=== PATIENT | male | born 1995 | race Caucasian/White ===

== ENCOUNTER 2019-01-25 22:06 | Emergency (ER) | payer BC ==
[2019-01-25 22:15] VITALS: TEMP 98.3
[2019-01-25] MEDS ORDERED: ONDANSETRON 4 MG/2 ML VIAL IVP STA (22:23)
[2019-01-25] MEDS ORDERED: PANTOPRAZOLE 40 MG/10 ML VIAL IVP STA (22:23)
[2019-01-25] MEDS ORDERED: SODIUM CHLORIDE 0.9% 1,000 ML IV STA (22:23)
--- NOTE | 2019-01-25 22:37 | XR ---
EXAMINATION TYPE: XR KUB DATE OF EXAM: 01/25/2019 COMPARISON: NONE HISTORY: Nausea and vomiting TECHNIQUE: 2 views FINDINGS: 2 views upright were obtained and show no sign of intestinal obstruction or pneumoperitoneu m. Fecal pattern is normal. Lung bases are clear. There are no pathologic calcifications over the kid neys. IMPRESSION: Nonacute abdomen.
[2019-01-25 22:39] LABS: Appearance,Urine Clear (Clear); Basophils # (A) 0.1 k/uL (0-0.2); Basophils % (A) 1 %; Bilirubin,Urine Negative (Negative); Blood,Urine Negative (Negative); Color,Urine Light Yellow; Eosinophils # (A) 0.3 k/uL (0-0.7); Eosinophils % (A) 3 %; Glucose,Urine (UA) Negative (Negative); HCT 44.2 % (39.0-53.0); HGB 15.2 gm/dL (13.0-17.5); Ketones,Urine 2+ (Negative); Leukocyte Esterase,Urine Negative (Negative); Lymphocytes # (A) 1.7 k/uL (1.0-4.8); Lymphocytes % (A) 18 %; MCH 31.1 pg (25.0-35.0); MCHC 34.4 g/dL (31.0-37.0); MCV 90.3 fL (80.0-100.0); Mean Platelet Volume 5.8; Monocytes # (A) 0.6 k/uL (0-1.0); Monocytes % (A) 6 %; Neutrophils # (A) 6.5 k/uL (1.3-7.7); Neutrophils % (A) 71 %; Nitrite,Urine Negative (Negative); PH, Urine 8.5 (5.0-8.0); Platelet Count 277 k/uL (150-450); Protein,Urine Negative (Negative); RDW 13.1 % (11.5-15.5); Specific Gravity,Urine 1.009 (1.001-1.035); Urobilinogen,Urine <2.0 mg/dL (<2.0); WBC 9.1 k/uL (3.8-10.6)
--- NOTE | 2019-01-25 22:43 | ED ---
Nausea/Vomiting/Diarrhea HPI - General Chief complaint: Nausea/Vomiting/Diarrhea Stated complaint: Vomiting Time Seen by Provider: 01/25/19 22:16 Source: patient, family Mode of arrival: ambulatory Limitations: no limitations - History of Present Illness Initial comments: 23-year-old male patient since to the emergency department today for evaluation of vomiting upper abdominal pain. Patient states this started last evening. States he has had streaking blood in his vomit. Denies any constipation or diarrhea. States he did have a bowel movement today which was normal. States he was eating earlier in the day but then vomiting became worse again. Denies any fever or chills. Denies any alcohol use. Does admit to IV drug use. Denies history of abdominal surgery. Patient denies any recent rash, shortness breath, chest pain, back pain, numbness, tingling, dizziness, weakness, hematuria, dysuria, urinary urgency, urinary frequency, headache, visual changes, or any other complaints. - Related Data Allergies Allergy/AdvReac Type Severity Reaction Status Date / Time No Known Allergies Allergy Verified 01/25/19 22:15 Review of Systems ROS Statement: Those systems with pertinent positive or pertinent negative responses have been documented in the HPI. ROS Other: All systems not noted in ROS Statement are negative. Past Medical History Past Medical History: No Reported History History of Any Multi-Drug Resistant Organisms: None Reported Past Surgical History: No Surgical Hx Reported Past Psychological History: No Psychological Hx Reported Smoking Status: Current every day smoker Past Alcohol Use History: Occasional Past Drug Use History: Heroin, Marijuana General Exam Limitations: no limitations General appearance: alert, in no apparent distress, other (This is a well- developed, well-nourished adult male patient in no acute distress. Vital signs upon presentation are temperature 98.3F, pulse 94, respirations 18, blood pressure 171/94, pulse ox 99% on room air.) Eye exam: Present: normal appearance, PERRL, EOMI. Absent: scleral icterus, conjunctival injection, periorbital swelling ENT exam: Present: normal exam, normal oropharynx, mucous membranes moist Respiratory exam: Present: normal lung sounds bilaterally. Absent: respiratory distress, wheezes, rales, rhonchi, stridor Cardiovascular Exam: Present: regular rate, normal rhythm, normal heart sounds. Absent: systolic murmur, diastolic murmur, rubs, gallop, clicks GI/Abdominal exam: Present: soft, tenderness (midepigastric tenderness), normal bowel sounds. Absent: distended, guarding, rebound, rigid Neurological exam: Present: alert, oriented X3, CN II-XII intact Psychiatric exam: Present: normal affect, normal mood Skin exam: Present: warm, dry, intact, normal color. Absent: rash Course Vital Signs 01/25/19 22:09 Temperature 98.3 F Pulse Rate 94 Respiratory 18 Rate Blood Pressure 171/94 O2 Sat by Pulse 99 Oximetry Medical Decision Making - Medical Decision Making 23-year-old male patient presents to the emergency department today for evaluation of upper abdominal pain, nausea, and vomiting. Physical examination did reveal tenderness to the midepigastric region. Remainder of abdomen was nontender. He is afebrile. Labs reviewed and did reveal mildly elevated lipase at 524. Patient was given IV fluids, zofran, and protonix. Upon re-evaluation he is does report improvement of symptoms. He is resting comfortably. He was informed of all results. He will be discharged to maintain clear liquid diet for the next 1-2 days. He will be given prescription for zofran. He is instructed to follow up with his primary care physician for recheck in 1-2 days. Return parameters are discussed in detail he verbalizes understanding and agrees with this plan. - Lab Data Result diagrams: 01/25/19 22:28 01/25/19 22:28 Lab Results 01/25/19 01/25/19 01/25/19 Range/Units 22:28 22:28 22:28 WBC 9.1 (3.8-10.6) k/uL RBC 4.90 (4.30-5.90) m/uL Hgb 15.2 (13.0-17.5) gm/dL Hct 44.2 (39.0-53.0) % MCV 90.3 (80.0-100.0) fL MCH 31.1 (25.0-35.0) pg MCHC 34.4 (31.0-37.0) g/dL RDW 13.1 (11.5-15.5) % Plt Count 277 (150-450) k/uL Neutrophils % 71 % Lymphocytes % 18 % Monocytes % 6 % Eosinophils % 3 % Basophils % 1 % Neutrophils # 6.5 (1.3-7.7) k/uL Lymphocytes # 1.7 (1.0-4.8) k/uL Monocytes # 0.6 (0-1.0) k/uL Eosinophils # 0.3 (0-0.7) k/uL Basophils # 0.1 (0-0.2) k/uL Sodium 139 (137-145) mmol/L Potassium 3.8 (3.5-5.1) mmol/L Chloride 102 (98-107) mmol/L Carbon Dioxide 26 (22-30) mmol/L Anion Gap 11 mmol/L BUN 10 (9-20) mg/dL Creatinine 1.01 (0.66-1.25) mg/dL Est GFR (CKD-EPI)AfAm >90 (>60 ml/min/1.73 sqM) Est GFR (CKD-EPI)NonAf >90 (>60 ml/min/1.73 sqM) Glucose 107 H (74-99) mg/dL Calcium 10.4 H (8.4-10.2) mg/dL Total Bilirubin 0.6 (0.2-1.3) mg/dL AST 32 (17-59) U/L ALT 31 (21-72) U/L Alkaline Phosphatase 64 (38-126) U/L Total Protein 7.2 (6.3-8.2) g/dL Albumin 4.4 (3.5-5.0) g/dL Lipase 524 H (23-300) U/L Urine Color Light Yellow Urine Appearance Clear (Clear) Urine pH 8.5 H (5.0-8.0) Ur Specific [place] 1.009 (1.001-1.035) Urine Protein Negative (Negative) Urine Glucose (UA) Negative (Negative) Urine Ketones 2+ H (Negative) Urine Blood Negative (Negative) Urine Nitrite Negative (Negative) Urine Bilirubin Negative (Negative) Urine Urobilinogen <2.0 (<2.0) mg/dL Ur Leukocyte Esterase Negative (Negative) Disposition Clinical Impression: Abdominal pain, Vomiting Disposition: HOME SELF-CARE Condition: Good Instructions (If sedation given, give patient instructions): Abdominal Pain (ED), Acute Nausea and Vomiting (ED), Pancreatitis (ED) Additional Instructions: Increase fluids. Maintain clear liquid diet for the next 1-2 days. Take nausea medication as directed. Follow-up with your primary care physician for recheck in 1-2 days, discuss ultrasound of symptoms persist. Return to the emergency department for any new, worsening, or concerning symptoms. Is patient prescribed a controlled substance at d/c from ED?: No Referrals: Tomas Camacho MD [REFERRING] - 1-2 days Time of Disposition: 23:33
[2019-01-25 22:47] LABS: ALT 31 U/L (21-72); AST 32 U/L (17-59); African American GFR (CKD) >90 (>60 ml/min/1.73 sqM); Albumin 4.4 g/dL (3.5-5.0); Alkaline Phosphatase 64 U/L (38-126); Anion Gap 11 mmol/L; Blood Urea Nitrogen 10 mg/dL (9-20); Calcium 10.4 mg/dL (8.4-10.2); Carbon Dioxide 26 mmol/L (22-30); Chloride 102 mmol/L (98-107); Glucose 107 mg/dL (74-99); Non-African American GFR(CKD) >90 (>60 ml/min/1.73 sqM); Potassium 3.8 mmol/L (3.5-5.1); Sodium 139 mmol/L (137-145); Total Bilirubin 0.6 mg/dL (0.2-1.3); Total Protein 7.2 g/dL (6.3-8.2)
[2019-01-25] MEDS ORDERED: SODIUM CHLORIDE 0.9% 1,000 ML IV ONE (22:49)
[2019-01-25] MEDS ORDERED: ONDANSETRON 4 MG ODT STARTER PACK 2 TAB BTL PO STA (23:36)
[2019-01-26 00:27] VITALS: BP 142/85; PULSE 77; RESP 16
== END 2019-01-26 00:30 | disposition home or self-care (01) ==
LOC: EC 22:06
DX: R10.10 Upper abdominal pain, unspecified (principal); R11.2 Nausea with vomiting, unspecified; R74.8 Abnormal levels of other serum enzymes; F19.90 Other psychoactive substance use, unspecified, uncomplicated; F17.200 Nicotine dependence, unspecified, uncomplicated
CPT/HCPCS: 36415; 80053; 83690; 85025; 81003; 74018; 99285; 96374; 96375; 96361 ×2; J2405; S0119; C9113

== ENCOUNTER 2020-04-12 21:53 | Emergency (ER) | payer BC, OTHER ==
[2020-04-12 21:59] VITALS: RESP 18; TEMP 98.7
[2020-04-12] MEDS ORDERED: SODIUM CHLORIDE 0.9% 1,000 ML IV ONE ×2 (22:12→23:38)
[2020-04-12] MEDS ORDERED: cloNIDine HCL 0.2 MG TAB PO STA (22:13)
[2020-04-12] MEDS ORDERED: PROMETHAZINE 25 MG TAB PO STA (22:13)
[2020-04-12 22:36] LABS: Basophils # (A) 0.1 k/uL (0-0.2); Basophils % (A) 1 %; Eosinophils # (A) 0.1 k/uL (0-0.7); Eosinophils % (A) 1 %; HCT 44.4 % (39.0-53.0); HGB 15.3 gm/dL (13.0-17.5); Lymphocytes # (A) 1.8 k/uL (1.0-4.8); Lymphocytes % (A) 24 %; MCH 29.8 pg (25.0-35.0); MCHC 34.4 g/dL (31.0-37.0); MCV 86.6 fL (80.0-100.0); Mean Platelet Volume 6.5; Monocytes # (A) 0.5 k/uL (0-1.0); Monocytes % (A) 6 %; Neutrophils # (A) 4.8 k/uL (1.3-7.7); Neutrophils % (A) 65 %; Platelet Count 268 k/uL (150-450); RBC 5.13 m/uL (4.30-5.90); RDW 12.9 % (11.5-15.5); WBC 7.3 k/uL (3.8-10.6)
--- NOTE | 2020-04-12 22:37 | ED ---
General Adult HPI - General Chief complaint: Recheck/Abnormal Lab/Rx Stated complaint: Light headed Time Seen by Provider: 04/12/20 22:03 Source: patient Mode of arrival: wheelchair Limitations: no limitations - History of Present Illness Initial comments: This patient is 24-year-old man who presents to be evaluated for constellation of symptoms that started within the past hour or so. He has been having myalgias, mild headache, feeling hot and cold, feeling anxious, having abdominal pain and nausea. Patient states he has been a chronic daily heroin user but quit using between 2 and 3 days ago. The patient denies any definite infectious symptoms. No known fever. He is not having cough. No change in urination or urethral discharge. The patient has not noted any abscesses at the sites he has injected at. Onset/Timin -: hour(s) Location: head Radiation: non-radiation Severity scale (1-10): 0 Consistency: constant Improves with: none Worsens with: none Associated Symptoms: headaches, malaise, nausea/vomiting Treatments Prior to Arrival: none - Related Data Previous Rx's Medication Instructions Recorded Ondansetron [Zofran ODT] 4 mg PO Q8HR PRN #10 tab 01/25/19 Penicillin V Potassium [Pen Vee K] 500 mg PO Q6H #40 tablet 01/26/19 LORazepam [Ativan] 1 mg PO TID 3 Days #9 tab 04/12/20 Promethazine [Phenergan] 25 mg PO Q6HR PRN #20 tablet 04/12/20 cloNIDine HCL [Catapres] 0.2 mg PO Q8H #9 tablet 04/12/20 Allergies Allergy/AdvReac Type Severity Reaction Status Date / Time No Known Allergies Allergy Verified 04/12/20 21:59 Review of Systems ROS Statement: Those systems with pertinent positive or pertinent negative responses have been documented in the HPI. ROS Other: All systems not noted in ROS Statement are negative. Constitutional: Reports: chills. Denies: fever Eyes: Reports: vision change Respiratory: Denies: cough, dyspnea Cardiovascular: Denies: chest pain, palpitations, orthopnea, edema Gastrointestinal: Reports: abdominal pain, nausea, vomiting. Denies: diarrhea, melena, hematochezia Genitourinary: Denies: dysuria, hematuria, testicular pain Musculoskeletal: Reports: myalgia. Denies: back pain Skin: Denies: rash Neurological: Reports: headache. Denies: weakness, numbness Psychiatric: Denies: anxiety Past Medical History Past Medical History: No Reported History History of Any Multi-Drug Resistant Organisms: None Reported Past Surgical History: No Surgical Hx Reported Past Psychological History: No Psychological Hx Reported Smoking Status: Current every day smoker Past Alcohol Use History: Occasional Past Drug Use History: Heroin, Marijuana General Exam Limitations: no limitations General appearance: alert, in no apparent distress Head exam: Present: atraumatic, normocephalic Eye exam: Present: normal appearance, PERRL, EOMI. Absent: scleral icterus, conjunctival injection Neck exam: Present: normal inspection, full ROM. Absent: meningismus Respiratory exam: Present: normal lung sounds bilaterally. Absent: respiratory distress, wheezes, rales, rhonchi, stridor, chest wall tenderness Cardiovascular Exam: Present: regular rate, normal rhythm, normal heart sounds. Absent: systolic murmur, diastolic murmur, rubs, gallop GI/Abdominal exam: Present: soft. Absent: distended, tenderness, guarding, rebound, rigid, mass, pulsatile mass Extremities exam: Present: normal inspection, normal capillary refill. Absent: pedal edema, calf tenderness Back exam: Present: normal inspection. Absent: CVA tenderness (R), CVA tenderness (L) Neurological exam: Present: alert Skin exam: Present: warm, intact, normal color, diaphoretic, other (Piloerection). Absent: rash Course Vital Signs 04/12/20 04/12/20 21:55 23:50 Temperature 98.7 F Pulse Rate 100 82 Respiratory 18 18 Rate Blood Pressure 167/107 131/81 O2 Sat by Pulse 97 96 Oximetry Medical Decision Making - Medical Decision Making I did have fairly lengthy discussion with patient and his mother who is present with him and discussed the appropriate further care and follow-up for opioid withdrawal. This patient's intention to stop using completely rather than in place of substitution therapy. Discussed appropriate return parameters. I did provide some prescriptions for symptom relief - Lab Data Result diagrams: 04/12/20 22:27 04/12/20 22:27 Lab Results 04/12/20 04/12/20 04/12/20 Range/Units 22:27 22:27 22:27 WBC 7.3 (3.8-10.6) k/uL RBC 5.13 (4.30-5.90) m/uL Hgb 15.3 (13.0-17.5) gm/dL Hct 44.4 (39.0-53.0) % MCV 86.6 (80.0-100.0) fL MCH 29.8 (25.0-35.0) pg MCHC 34.4 (31.0-37.0) g/dL RDW 12.9 (11.5-15.5) % Plt Count 268 (150-450) k/uL MPV 6.5 Neutrophils % 65 % Lymphocytes % 24 % Monocytes % 6 % Eosinophils % 1 % Basophils % 1 % Neutrophils # 4.8 (1.3-7.7) k/uL Lymphocytes # 1.8 (1.0-4.8) k/uL Monocytes # 0.5 (0-1.0) k/uL Eosinophils # 0.1 (0-0.7) k/uL Basophils # 0.1 (0-0.2) k/uL Sodium 140 (137-145) mmol/L Potassium 3.6 (3.5-5.1) mmol/L Chloride 106 (98-107) mmol/L Carbon Dioxide 22 (22-30) mmol/L Anion Gap 12 mmol/L BUN 9 (9-20) mg/dL Creatinine 0.90 (0.66-1.25) mg/dL Est GFR (CKD-EPI)AfAm >90 (>60 ml/min/1.73 sqM) Est GFR (CKD-EPI)NonAf >90 (>60 ml/min/1.73 sqM) Glucose 109 H (74-99) mg/dL Plasma Lactic Acid [place] 1.8 (0.7-2.0) mmol/L Calcium 9.8 (8.4-10.2) mg/dL Total Bilirubin 0.5 (0.2-1.3) mg/dL AST 19 (17-59) U/L ALT 21 (4-49) U/L Alkaline Phosphatase 68 (38-126) U/L Total Protein 7.5 (6.3-8.2) g/dL Albumin 4.4 (3.5-5.0) g/dL Disposition Clinical Impression: Opioid withdrawal Disposition: HOME SELF-CARE Condition: Good Instructions (If sedation given, give patient instructions): Opioid Withdrawal (ED) Prescriptions: LORazepam [Ativan] 1 mg PO TID 3 Days #9 tab cloNIDine HCL [Catapres] 0.2 mg PO Q8H #9 tablet Promethazine [Phenergan] 25 mg PO Q6HR PRN #20 tablet PRN Reason: Vomiting Is patient prescribed a controlled substance at d/c from ED?: Yes When asked, does pt state using other controlled substances?: No If prescribed controlled substance>3 days was MAPS reviewed?: Prescribed <3 Days Referrals: None,Stated [Primary Care Provider] - 1-2 days
[2020-04-12 22:45] LABS: ALT 21 U/L (4-49); AST 19 U/L (17-59); African American GFR (CKD) >90 (>60 ml/min/1.73 sqM); Albumin 4.4 g/dL (3.5-5.0); Alkaline Phosphatase 68 U/L (38-126); Anion Gap 12 mmol/L; Blood Urea Nitrogen 9 mg/dL (9-20); Calcium 9.8 mg/dL (8.4-10.2); Carbon Dioxide 22 mmol/L (22-30); Chloride 106 mmol/L (98-107); Glucose 109 mg/dL (74-99); Non-African American GFR(CKD) >90 (>60 ml/min/1.73 sqM); Potassium 3.6 mmol/L (3.5-5.1); Sodium 140 mmol/L (137-145); Total Bilirubin 0.5 mg/dL (0.2-1.3); Total Protein 7.5 g/dL (6.3-8.2)
[2020-04-12] MEDS ORDERED: LORazepam 2 MG/ML INJ IV STA (23:38)
[2020-04-12 23:51] VITALS: BP 131/81; PULSE 82
== END 2020-04-13 00:59 | disposition home or self-care (01) ==
LOC: EC 21:53
DX: F11.23 Opioid dependence with withdrawal (principal); F17.200 Nicotine dependence, unspecified, uncomplicated
CPT/HCPCS: 36415; 80053; 83605; 85025; 99284; 96374; 96361 ×2; J2060

== ENCOUNTER 2020-08-13 00:34 | Inpatient (IN) | payer BC, OTHER ==
[2020-08-13 03:04] LABS: Amphetamine Screen,Urine Not Detected (NotDetected); Barbiturate Screen,Urine Not Detected (NotDetected); Benzodiazepines Screen,Urine Not Detected (NotDetected); Cocaine Screen,Urine Not Detected (NotDetected); Methadone Screen, Urine Not Detected (NotDetected); Opiate Screen,Urine Detected (NotDetected); Oxycodone Screen, Urine Not Detected (NotDetected); Phencyclidine Screen,Urine Not Detected (NotDetected); Tricyclic Antidepressant,Urine Not Detected (NotDetected); Urn Cannabinoid Scrn Detected (NotDetected)
--- NOTE | 2020-08-13 06:10 | ED ---
Psych HPI - General Chief Complaint: Psychiatric Symptoms Stated Complaint: Mental health Time Seen by Provider: 08/13/20 01:18 Source: patient Mode of arrival: ambulatory - History of Present Illness Initial Comments: This patient is a 24-year-old man here to have psychiatric evaluation. The patient's mother has filed a petition that the patient had made some suicidal statements and also that he had attempted to harm himself tonight. When I interview the patient, he denies any medical complaint. When asked about psychiatric symptoms, he did not respond to the questions and is not forthcoming. The patient did not deny. MD Complaint: suicidal ideation, feels depressed -: unknown Quality: getting worse Improves With: none Worsens With: none Context: significant life stressor - Related Data Previous Rx's Medication Instructions Recorded Ondansetron [Zofran ODT] 4 mg PO Q8HR PRN #10 tab 01/25/19 Penicillin V Potassium [Pen Vee K] 500 mg PO Q6H #40 tablet 01/26/19 LORazepam [Ativan] 1 mg PO TID 3 Days #9 tab 04/12/20 Promethazine [Phenergan] 25 mg PO Q6HR PRN #20 tablet 04/12/20 cloNIDine HCL [Catapres] 0.2 mg PO Q8H #9 tablet 04/12/20 Allergies Allergy/AdvReac Type Severity Reaction Status Date / Time No Known Allergies Allergy Verified 04/12/20 21:59 Review of Systems ROS Statement: Those systems with pertinent positive or pertinent negative responses have been documented in the HPI. ROS Other: All systems not noted in ROS Statement are negative. Respiratory: Denies: cough, dyspnea Cardiovascular: Denies: chest pain, palpitations Gastrointestinal: Denies: abdominal pain, vomiting Musculoskeletal: Denies: back pain Neurological: Denies: headache Psychiatric: Reports: as per HPI Past Medical History Past Medical History: No Reported History History of Any Multi-Drug Resistant Organisms: None Reported Past Surgical History: No Surgical Hx Reported Past Psychological History: No Psychological Hx Reported, Depression Smoking Status: Current every day smoker Past Alcohol Use History: Occasional Past Drug Use History: Cocaine, Heroin, Marijuana, Methamphetamine General Exam Limitations: no limitations General appearance: alert, in no apparent distress Head exam: Present: atraumatic, normocephalic Eye exam: Present: normal appearance. Absent: scleral icterus, conjunctival injection Respiratory exam: Present: normal lung sounds bilaterally. Absent: respiratory distress, wheezes, rales, rhonchi, stridor Cardiovascular Exam: Present: regular rate, normal rhythm, normal heart sounds. Absent: systolic murmur, diastolic murmur, rubs, gallop GI/Abdominal exam: Present: soft. Absent: tenderness, guarding, rebound Back exam: Absent: tenderness Neurological exam: Present: alert, normal gait Psychiatric exam: Present: flat affect, other (Patient not cooperative with psychiatric assessment by this examiner). Absent: agitated Skin exam: Present: warm, dry, intact, normal color Course Vital Signs 08/13/20 00:42 Temperature 98.1 F Pulse Rate 85 Respiratory 16 Rate Blood Pressure 130/97 O2 Sat by Pulse 99 Oximetry Medical Decision Making - Lab Data Lab Results 08/13/20 08/13/20 Range/Units 02:23 05:31 Urine Opiates Screen Detected H (NotDetected) Ur Oxycodone Screen Not Detected (NotDetected) Urine Methadone Screen Not Detected (NotDetected) Ur Propoxyphene Screen Not Detected (NotDetected) Ur Barbiturates Screen Not Detected (NotDetected) U Tricyclic Antidepress Not Detected (NotDetected) Ur Phencyclidine Scrn Not Detected (NotDetected) Ur Amphetamines Screen Not Detected (NotDetected) U Methamphetamines Scrn Not Detected (NotDetected) U Benzodiazepines Scrn Not Detected (NotDetected) Urine Cocaine Screen Not Detected (NotDetected) U Marijuana (THC) Screen Detected H (NotDetected) Coronavirus (PCR) Not Detected (Not Detectd) Disposition Clinical Impression: Mood disorder Disposition: ADMITTED IP TO THIS [facility] Condition: Fair Is patient prescribed a controlled substance at d/c from ED?: No Referrals: None,Stated [Primary Care Provider] - 1-2 days
[2020-08-13] MEDS ORDERED: NICOTINE 21MG/24HR PATCH TRANSDERM STA (09:37)
[2020-08-13] MEDS ORDERED: ACETAMINOPHEN TAB 325 MG TAB PO PRN (10:43)
[2020-08-13] MEDS ORDERED: MAGNESIUM HYDROXIDE 2,400 MG/10 ML CUP PO PRN (10:43)
[2020-08-13] MEDS ORDERED: MAG HYDROX/AL HYDROX/SIMETH 30 ML CUP PO PRN (10:43)
[2020-08-13] MEDS ORDERED: LORazepam 2 MG/ML INJ IM PRN (10:47)
[2020-08-13] MEDS ORDERED: HALOPERIDOL LACTATE 5 MG/ML 1 ML VIAL IM PRN (10:48)
[2020-08-13] MEDS ORDERED: hydrOXYzine pamoate 25 MG CAP PO PRN (14:54)
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
[2020-08-13] MEDS: SERTRALINE 25 MG TAB PO SCH (16:31)
[2020-08-13] MEDS: LORazepam 1 MG TAB PO PRN (16:32)
[2020-08-14 06:45] VITALS: RESP 18
[2020-08-14 07:48] LABS: Basophils % (A) 0 %; Eosinophils # (A) 0.3 k/uL (0-0.7); Eosinophils % (A) 5 %; HCT 44.8 % (39.0-53.0); HGB 15.6 gm/dL (13.0-17.5); Lymphocytes # (A) 2.1 k/uL (1.0-4.8); Lymphocytes % (A) 35 %; MCH 31.6 pg (25.0-35.0); MCHC 34.9 g/dL (31.0-37.0); MCV 90.7 fL (80.0-100.0); Mean Platelet Volume 7.2; Monocytes # (A) 0.4 k/uL (0-1.0); Monocytes % (A) 7 %; Neutrophils # (A) 3.1 k/uL (1.3-7.7); Neutrophils % (A) 52 %; Platelet Count 204 k/uL (150-450); RBC 4.94 m/uL (4.30-5.90)
[2020-08-14 08:00] LABS: ALT 18 U/L (4-49); AST 33 U/L (17-59); African American GFR (CKD) >90 (>60 ml/min/1.73 sqM); Albumin 4.2 g/dL (3.5-5.0); Alkaline Phosphatase 63 U/L (38-126); Anion Gap 7 mmol/L; Blood Urea Nitrogen 13 mg/dL (9-20); Calcium 9.2 mg/dL (8.4-10.2); Carbon Dioxide 24 mmol/L (22-30); Chloride 109 mmol/L (98-107); Glucose 93 mg/dL (74-99); Non-African American GFR(CKD) >90 (>60 ml/min/1.73 sqM); Potassium 4.4 mmol/L (3.5-5.1); Sodium 140 mmol/L (137-145); Total Bilirubin 1.4 mg/dL (0.2-1.3); Total Protein 6.6 g/dL (6.3-8.2)
[2020-08-14] MEDS: SERTRALINE 25 MG TAB PO SCH (08:46)
[2020-08-14] MEDS: NICOTINE 14MG/24HR PATCH TRANSDERM SCH (08:46)
[2020-08-14] MEDS: LORazepam 1 MG TAB PO PRN (12:20)
[2020-08-14 12:37] LABS: Chol/HDL Ratio 3.63; Cholesterol 127 mg/dL (0-200)
--- NOTE | 2020-08-14 16:22 | P.MDCNMH ---
History of Present Illness H&P Date: 08/14/20 Chief Complaint: Medical clearance and management 24-year-old man with a medical history of nicotine abuse, alcohol abuse, marijuana use, depression presented with suicidal ideation and major depression. Patient was admitted to the mental health unit; medicine consulted by psychiatry for medical clearance as well as medical management. Patient has no acute complaints at this time. He denies any medical conditions including hypertension, hyperlipidemia, diabetes, cancer, strokes, heart attacks, kidney disease. His review of systems is negative for fevers, chills, nausea, vomiting, chest pain, palpitations, cough, dyspnea, abdominal pain, constipation, diarrhea, dysuria, dyschezia, numbness/weakness. Review of Systems All Systems reviewed and pertinent positives and negatives noted in HPI, all other symptoms are negative Past Medical History Past Medical History: No Reported History History of Any Multi-Drug Resistant Organisms: None Reported Past Surgical History: No Surgical Hx Reported Past Psychological History: No Psychological Hx Reported, Depression Smoking Status: Current every day smoker Past Alcohol Use History: Occasional Past Drug Use History: Cocaine, Heroin, Marijuana, Methamphetamine Medications and Allergies Home Medications Medication Instructions Recorded Confirmed Type No Known Home Medications 08/13/20 08/13/20 History Allergies Allergy/AdvReac Type Severity Reaction Status Date / Time No Known Allergies Allergy Verified 08/13/20 12:16 Physical Exam Osteopathic Statement: *. No significant issues noted on an osteopathic structural exam other than those noted in the History and Physical/Consult. Vitals: Vital Signs Temp Pulse Resp BP 08/14/20 06:44 97.8 F 53 L 18 130/59 Intake and Output 08/14/20 08/14/20 08/14/20 06:59 14:59 22:59 Other: Weight 72.3 kg Gen: awake, alert HEENT: normocephalic, atraumatic, good hearing acuity, moist mucous membranes Resp: good air exchange, breathing comfortably with no accessory muscle use, clear to auscultation bilaterally without wheezes or crackles, CVS: good distal perfusion x 4, regular rate and rhythm without murmurs GI: soft, NTTP, ND, appropriate bowel sounds : no SPT, no CVAT, huertas catheter not present MSK: no pitting edema, no clubbing Neuro: non-focal, moving all extremities Psych: cooperative, euthymic mood Cranial Nerve Examination - Cranial Nerves Cranial Nerve I- Olfactory: Intact Cranial Nerve II- Optic: Intact Cranial Nerve III- Oculomotor: Intact Cranial Nerve IV- Trochlear: Intact Cranial Nerve V- Trigeminal: Intact Cranial Nerve - Abducens: Intact Cranial Nerve VII- Facial: Intact Cranial Nerve VIII- Auditory: Intact Cranial Nerve IX- Glossopharyngeal: Intact Cranial Nerve X- Vagus: Intact Cranial Nerve XI- Accessory: Intact Cranial Nerve XII- Hypoglossal: Intact Results CBC & Chem 7: 08/14/20 06:54 08/14/20 06:54 Labs: Abnormal Lab Results - Last 24 Hours (Table) 08/14/20 Range/Units 06:54 Chloride 109 H (98-107) mmol/L Total Bilirubin 1.4 H (0.2-1.3) mg/dL HDL Cholesterol 35.0 L (40.0-60.0) mg/dL Assessment and Plan Assessment: Alcohol abuse Nicotine abuse Marijuana use Major depression Suicidal ideation -Patient does not take any home medications -Patient has no known medical conditions -Active medications reviewed, and I agree with no changes Thanks for allowing us to participate in the care of this patient. [facility] available 24/09 via [employer] or at a [phone].
--- NOTE | 2020-08-15 00:35 | P.PN ---
Progress Note - Text Progress Note Date: 08/14/20 Subjective: Patient was seen today as a cross coverage for Dr. Stephens. The patient was evaluated, chart reviewed, case discussed with the treatment team. Patient reports better sleep last night, and appetite was reported as "fair ". Patient has been going to groups and other unit activities. The patient is compliant with his medications and denies any adverse reactions. Patient reports feeling better today and minimizes depression and hopelessness. Denies any suicidal id eation. Reports in general feeling more positive and he spoke to his friend who will provide support after discharge from the hospital. Patient reports this friend doesn't use drugs and he would be his safety network to ensure that he is not going back to use drugs again. Patient is interested to continue treatment including therapy after discharge. He denies any manic or psychotic symptoms. Objective: Vitals has been reviewed. MENTAL STATUS EVALUATION: Appearance: Appears stated age, groomed, disheveled, average body built, and no specific features. Gait/ posture: Steady gait, normal arm swinging, no abnormal movements, with relaxed posture. Attitude and Behavior: engaged, related to the interviewer in socially accepted manner, fair eye contact during course of interview. Motor Activity: normal psychomotor activity. Speech: spontaneous, Normal rate, rhythm, and articulation. normal volume. not pressured. Language: Articulating, naming objects and repeat phrases. Mood: "depressed" Affect: Restricted. Thought process: Linear, goal-directed. Association: Intact. Thought content: Denies delusions, denies suicidal thoughts, Denies homicidal thoughts, Denies current intentions, or plans. Perception: Denies any hallucinations Alertness: No impairment. Concentration: fair Orientation: oriented to time, person, place and situation. Insight regarding psychiatric condition: fair Judgment regarding daily activities and social situation: fair Impulse control: fair Assessment: Major depressive disorder, recurrent, severe without psychotic features. Post traumatic stress disorder. Opioid use disorder, severe, early partial remission. Alcohol use disorder, mild. Nicotine use disorder. Plan: Continue inpatient level of care due to need for further monitoring and stabilization. Precautions: Continue 15 minutes check for safety. Consider medical consultation if any acute medical issues arise. Provide the patient individual, group therapy, substance use disorder counseling to give better insight and learn coping skills. Medications: Continue Zoloft and increase the dose to 50 mg daily for depression and anxiety. Continue nicotine replacement therapy. Continue as needed medications for psychiatric emergencies including psychosis, agitation and anxiety. Continue non-psychiatric medications for medical conditions as recommended by the medical team. Discharge patient to OUTPATIENT services upon a stabilization
[2020-08-15 06:55] VITALS: BP 134/71; PULSE 55; TEMP 98.1
[2020-08-15] MEDS: NICOTINE 14MG/24HR PATCH TRANSDERM SCH (08:34)
[2020-08-15] MEDS ORDERED: SERTRALINE 50 MG TAB PO SCH (09:00)
[2020-08-15] MEDS: LORazepam 1 MG TAB PO PRN (10:22)
--- NOTE | 2020-08-15 11:53 | P.DS ---
Providers Date of admission: 08/13/20 10:40 Expected date of discharge: 08/15/20 Attending physician: Naveen Stephens MD Consults: 08/13/20 10:43 Consult Physician Routine Consulting Provider: [facility] Consult Reason/Comments: medical management Do you want consulting provider notified?: Yes Primary care physician: Stated None - Discharge Diagnosis(es) (1) Major depressive disorder without psychotic features Current Visit: Yes Status: Acute Priority: High (2) Posttraumatic stress disorder Current Visit: Yes Status: Chronic Priority: Medium (3) Nicotine dependence Current Visit: Yes Status: Chronic Priority: Medium (4) Alcohol use disorder, mild, abuse Current Visit: Yes Status: Chronic Priority: Medium (5) Opioid use disorder, mild, in early remission Current Visit: No Status: Chronic Priority: Medium Hospital Course: Admission HPI: Fuad Gibson is a 24-year-old male who currently lives with his mother, employed, has psychiatric history of depression, and denies any medical history. The patient has been admitted to our inpatient psychiatric services after been transferred from [facility] emergency room. Patient was initially admitted involuntarily after petitioned by his mother because of suicidal threat and tried to jump over the bridge, but he agreed for voluntary admission today. "I need help." The patient was previous depression symptoms, started few months ago after his girlfriend committed suicide by shot herself. Patient has been suffering from severe depression, decreasing, and he reports "I can't handle these feeling and I don't like to feel this way". He reports missing his girlfriend and he was feeling extremely overwhelmed yesterday and had thoughts to jump over the bridge. He agreed with psychiatric hospitalization and to continue his treatment until he would get better. Reports history of suicidal attempts 5 month ago when he tried to hang himself right after his girlfriend committed suicide. He reports sometimes feeling hopeless, worthless, guilty, and crying. Denies any sleep or appetite problems. Reports mood swings with anger, agitation, but denies frequent or constant aggressive behavior. Reports nonstop racing thoughts and he couldn't stop his m ind from thinking. All his depression and anxiety symptoms started after his girlfriend . Reports PTSD symptoms mainly intrusive thoughts and flashbacks related to his girlfriend at that that he found her after she shot herself and she survived for 2 days before . Denies any current or previous symptoms of psychosis including hallucinations, paranoid ideation, or delusions. Denies any current or previous symptoms of rosalie including elevated mood, grandiosity, absence need to sleep due to unusual increase in energy, or impulsive/uninhibited behavior. Denies any current or previous history of self-injurious behavior. Reports history of heroin addiction for few years but he stopped completely after his girlfriend . He reports was with his ex-girlfriend for 5 years and both had addiction problem but they tried harder to stop using. Reports his girlfriend was very attached to his son who have is from previous marriage, and he feels guilty because she used his gun and he was doing drugs while she was suffering from depression. He wants to get better for his son and was able to address need for treatment and ongoing therapy after discharge. Hospital course: Upon admission to the unit patient was initially presenting as disheveled but calm, cooperative and attentive. Patient was directable and agreeable to commence treatment. Patient got along well with other patients on the unit and followed unit protocol. Patient was compliant with the medications and denied any side effects throughout hospital course. Patient was started on zoloft for depression/anxiety/PTSD. Patient spoke of his stressors and engaged in therapy both group and individual. Patient was also seen by medical team for history and physical exam. Throughout the course of the hospitalization patient gradually improved with regards to his depression, anxiety, sleep, and future orientation. The patient's Zoloft was grossly titrated to its final dose of 50 mg by mouth daily. On the day of discharge, the patient is not reporting any suicidal or homicidal ideation, intention, and/or plan. He is denying any auditory or visual hallucinations. He expresses a strong desire to live for himself, his child, and for the rest of his family. The patient is future oriented, is gainfully employed, and has strong support from his family. He reports no access to firearms or other weapons. He states that he had his firearms taken away and disposed of after suicide of his girlfriend. The patient is not reporting any auditory or visual hallucinations. He is not reporting any paranoia or other delusions. The patient does have a significant history of substance abuse however was counseled on abstaining from all substances including alcohol and marijuana. Patient was counseled on his medications and need for regular compliance. He is also encouraged to follow-up with his outpatient appointment for mental health and for primary care. Prior to discharge, family meeting will be arranged by social media marketing specialist to answer questions and ensure safety. Mental status exam: General Appearance: Patient appears to be stated age is alert, pleasant, and cooperative. Patient is in no acute distress and has fair hygiene and grooming. Tall and physically fit male with multiple tattoos, short cut hair, and appeared. Behavior: Patient is calmly seated without any agitated behavior. Eye contact is appropriate. Psychomotor activity is normal. Speech: Patient's speech is fluent and nonpressured. Mood/Affect: Patient reports their mood is "feeling much better", affect is congruent and euthymic to bright. Suicidality/Homicidality: Patient denies having any suicidal or homicidal ideation, intention, and/or plan. Perceptions: Patient denies any auditory or visual hallucinations. Though content/process: There is no evidence of any delusional thought content and thought process is linear and goal-directed. The patient is future oriented. Memory and concentration: AOX3, grossly intact for the purposes of this session. Can spell "WORLD" backwards correctly. Judgment and insight: Improved with guarded prognosis Impression: Major depressive disorder, recurrent, severe without psychotic features. Post traumatic stress disorder. Opioid use disorder, severe, early partial remission. Alcohol use disorder, mild. Nicotine use disorder Plan: -Continue with discharge today as patient has improved and stabilized psychiatrically and is not currently an imminent threat to himself and/or others. Patient will remain at chronically elevated risk for harm to self and/or others due to his polysubstance abuse. -Continue medications: Zoloft 50 mg by mouth daily for depression/ascites/PTSD Habitrol patches for nicotine dependence -Patient was counseled on the need for medication compliance and appropriate follow-up at mental health and also primary care for medical issues. Patient verbalized understanding and agreed. -Social work to arrange for and conduct family meeting to ensure safety upon discharge and answer any questions/concerns. Social work also to arrange for patients follow up appointments for psychiatric care along with follow up with primary care provider. -Patient counseled on abstaining from recreational drugs and marijuana and alcohol. Was informed/educated on the adverse effects on their physical and mental health. Patient verbally agreed and understood.-Patient was instructed to return to the hospital or seek immediate medical care if their psychiatric or medical symptoms do worsen or reoccur. -Psychoeducation and supportive therapy provided to patient. Risks and benefits of pharmacological treatment versus the risks and benefits of nontreatment weight and discussed. Informed consent discussion held. Common side effects of psychotropics discussed such as, but not limited to headache, GI disturbance, sexual dysfunction, movement disorders, sedation, and orthostatic hypotension. Life threatening and blackbox warnings of prescribed medications also discussed. Potential risks of operating a vehicle or heavy machinery discussed with patient at length. Advised on importance of compliance and a reliable and responsible manner. Patient advised to review FDA consumer labeling of all medications prior to taking. Patient verbalized understanding of potential risks, and agrees with current treatment plan. Patient advised to medically contact physician/emergency personnel if any acute changes in condition occur. Laboratory Results WBC 6.0 k/uL (3.8-10.6) 08/14/20 06:54 RBC 4.94 m/uL (4.30-5.90) 08/14/20 06:54 Hgb 15.6 gm/dL (13.0-17.5) 08/14/20 06:54 Hct 44.8 % (39.0-53.0) 08/14/20 06:54 MCV 90.7 fL (80.0-100.0) 08/14/20 06:54 MCH 31.6 pg (25.0-35.0) 08/14/20 06:54 MCHC 34.9 g/dL (31.0-37.0) 08/14/20 06:54 RDW 13.0 % (11.5-15.5) 08/14/20 06:54 Plt Count 204 k/uL (150-450) 08/14/20 06:54 MPV 7.2 08/14/20 06:54 Neutrophils % 52 % 08/14/20 06:54 Lymphocytes % 35 % 08/14/20 06:54 Monocytes % 7 % 08/14/20 06:54 Eosinophils % 5 % 08/14/20 06:54 Basophils % 0 % 08/14/20 06:54 Neutrophils # 3.1 k/uL (1.3-7.7) 08/14/20 06:54 Lymphocytes # 2.1 k/uL (1.0-4.8) 08/14/20 06:54 Monocytes # 0.4 k/uL (0-1.0) 08/14/20 06:54 Eosinophils # 0.3 k/uL (0-0.7) 08/14/20 06:54 Basophils # 0.0 k/uL (0-0.2) 08/14/20 06:54 Sodium 140 mmol/L (137-145) 08/14/20 06:54 Potassium 4.4 mmol/L (3.5-5.1) 08/14/20 06:54 Chloride 109 mmol/L (98-107) H 08/14/20 06:54 Carbon Dioxide 24 mmol/L (22-30) 08/14/20 06:54 Anion Gap 7 mmol/L 08/14/20 06:54 BUN 13 mg/dL (9-20) 08/14/20 06:54 Creatinine 1.05 mg/dL (0.66-1.25) 08/14/20 06:54 Est GFR (CKD-EPI)AfAm >90 (>60 ml/min/1.73 sqM) 08/14/20 06:54 Est GFR (CKD-EPI)NonAf >90 (>60 ml/min/1.73 sqM) 08/14/20 06:54 Glucose 93 mg/dL (74-99) 08/14/20 06:[address] Glu mg/dL 105 08/14/20 06:54 Hemoglobin A1c 5.3 % (4.0-6.0) 08/14/20 06:54 Calcium 9.2 mg/dL (8.4-10.2) 08/14/20 06:54 Total Bilirubin 1.4 mg/dL (0.2-1.3) H 08/14/20 06:54 AST 33 U/L (17-59) 08/14/20 06:54 ALT 18 U/L (4-49) 08/14/20 06:54 Alkaline Phosphatase 63 U/L (38-126) 08/14/20 06:54 Total Protein 6.6 g/dL (6.3-8.2) 08/14/20 06:54 Albumin 4.2 g/dL (3.5-5.0) 08/14/20 06:54 Triglycerides 130.0 mg/dL (0.0-149.0) 08/14/20 06:54 Cholesterol 127 mg/dL (0-200) 08/14/20 06:54 LDL Cholesterol, Calc 66.0 mg/dL (0.0-131.0) 08/14/20 06:54 VLDL Cholesterol, Calc 26.00 mg/dL (5.00-40.00) 08/14/20 06:54 HDL Cholesterol 35.0 mg/dL (40.0-60.0) L 08/14/20 06:54 Cholesterol/HDL Ratio 3.63 08/14/20 06:54 TSH 0.555 mIU/L (0.465-4.680) 08/14/20 06:54 Urine Opiates Screen Detected (NotDetected) H 08/13/20 02:23 Ur Oxycodone Screen Not Detected (NotDetected) 08/13/20 02:23 Urine Methadone Screen Not Detected (NotDetected) 08/13/20 02:23 Ur Propoxyphene Screen Not Detected (NotDetected) 08/13/20 02:23 Ur Barbiturates Screen Not Detected (NotDetected) 08/13/20 02:23 U Tricyclic Antidepress Not Detected (NotDetected) 08/13/20 02:23 Ur Phencyclidine Scrn Not Detected (NotDetected) 08/13/20 02:23 Ur Amphetamines Screen Not Detected (NotDetected) 08/13/20 02:23 U Methamphetamines Scrn Not Detected (NotDetected) 08/13/20 02:23 U Benzodiazepines Scrn Not Detected (NotDetected) 08/13/20 02:23 Urine Cocaine Screen Not Detected (NotDetected) 08/13/20 02:23 U Marijuana (THC) Screen Detected (NotDetected) H 08/13/20 02:23 Coronavirus (PCR) Not Detected (Not Detectd) 08/13/20 05:31 Vital Signs Temp 98.1 F 08/15/20 06:00 Pulse 55 L 08/15/20 06:00 Resp 18 08/15/20 06:00 BP 134/71 08/15/20 06:00 Pulse Ox 97 08/13/20 10:55 Intake & Output 08/14/20 08/15/20 08/15/20 18:59 06:59 18:59 Weight 72.3 kg Allergies Allergy/AdvReac Type Severity Reaction Status Date / Time No Known Allergies Allergy Verified 08/13/20 12:16 Patient Condition at Discharge: Stable Plan - Discharge Summary Discharge Rx Participant: Yes New Discharge Prescriptions: New Nicotine 14Mg/24Hr Patch [Habitrol] 1 patch TRANSDERM DAILY 30 Days patch Sertraline [Zoloft] 50 mg PO DAILY 30 Days tab Discharge Medication List Nicotine 14Mg/24Hr Patch [Habitrol] 1 patch TRANSDERM DAILY 30 Days patch 08/15/20 [Rx] Sertraline [Zoloft] 50 mg PO DAILY 30 Days tab 08/15/20 [Rx] Follow up Appointment(s)/Referral(s): None,Stated [Primary Care Provider] - 1-2 days Activity/Diet/Wound Care/Special Instructions: Activity and diet as tolerated. Avoid the use of street drugs and alcohol. Take all medications as prescribed. When you are in need of refills on your medications please contact your medical provider and/or outpatient psychiatrist to have this done. Please go to scheduled outpatient appointment for aftercare treatment. If symptoms return or become worse, call the crisis line at and/or go to the nearest emergency room for evaluation. Discharge Disposition: HOME SELF-CARE
== END 2020-08-15 16:34 | disposition home or self-care (01) | DRG 885 ==
LOC: EC 00:34 → 3MHU 10:40
PROVIDERS: ADMIT Psychiatry & Neurology Psychiatry; ATTEND Psychiatry & Neurology Psychiatry
DX: F33.2 Major depressive disorder, recurrent severe without psychotic features (principal); F10.10 Alcohol abuse, uncomplicated; F11.21 Opioid dependence, in remission; F17.200 Nicotine dependence, unspecified, uncomplicated; F43.10 Post-traumatic stress disorder, unspecified; Z79.899 Other long term (current) drug therapy; Z91.5 Personal history of self-harm; Z20.822 Contact with and (suspected) exposure to COVID-19
CPT/HCPCS: 80053; 80061; 80306; 82075; 83036; 84443; 85025; 87635; 99285